=== PATIENT | female | born 1940 | race Hispanic/Latino ===

== ENCOUNTER → 2020-07-14 | Outpatient (CLI) | payer OTHER | END | disposition home or self-care (01) | LOC: RAH 08:41 | PROVIDERS: ATTEND Internal Medicine | DX: R55 Syncope and collapse (principal); I51.7 Cardiomegaly; R06.00 Dyspnea, unspecified; E11.9 Type 2 diabetes mellitus without complications | CPT/HCPCS: 93306; 93356 ==

== ENCOUNTER 2023-01-16 12:44 | Emergency (ER) | payer MEDICARE, OTHER ==
[~2023-01-16] VITALS: Ht 160 cm; Wt 68.0 kg
[2023-01-16] MEDS ORDERED: ONDANSETRON 4MG INJ IVP ONE (16:30)
[2023-01-16] MEDS ORDERED: MORPHINE 2 MG SYG IVP ONE (16:30)
[2023-01-16 17:28] VITALS: BP 142/78
== END 2023-01-16 17:57 | disposition home or self-care (01) ==
LOC: EDH 12:44
DX: S52.592A Other fractures of lower end of left radius, initial encounter for closed fracture (principal); E11.9 Type 2 diabetes mellitus without complications; I10 Essential (primary) hypertension; W18.39XA Other fall on same level, initial encounter; Y93.89 Activity, other specified; Y92.89 Other specified places as the place of occurrence of the external cause; Y99.8 Other external cause status
CPT/HCPCS: 99285; 70450; 96374; 96375; 73090; 73110; 72125; 29125; J2405